=== PATIENT | female | born 1945 | race Caucasian/White ===

== ENCOUNTER 2018-04-25 06:30 | Day surgery (SDC) | payer MEDICARE, OTHER ==
[~2018-04-25] VITALS: Ht 157.5 cm; Wt 63.0 kg
[~2018-04-25 06:30] MED LIST: AMOXICILLIN500 MG PO; ESTRACE0.5 MG PO; MECLIZINE HCL25 MG PO; NORCO 5-325 TA1 EACH PO; SYNTHROID112 MCG PO; ZOFRAN ODT4 MG SL
--- NOTE | 2018-04-25 08:03 | NUR ---
04/25/18 0803 Katharina Stringer 0756 PT ARRIVED IN PACU SLEEPY WITH NO C/O'S. ABD SOFT. 0803 OXYGEN DECREASED TO 2L VIA NC WITH SATS 100%.
--- NOTE | 2018-04-25 08:41 | OR ---
[facility] [address], [place] [address] Signed DATE OF OPERATION: 04/25/2018 SURGEON: Ander Merlos MD PREOPERATIVE DIAGNOSIS: Hyperplastic colorectal polyps 2005. POSTOPERATIVE DIAGNOSIS: Ggsakhu-of-cofxkadx circumferential external hemorrhoids. PROCEDURES: Colonoscopy without biopsy. ESTIMATED BLOOD LOSS: None. INDICATIONS: Veronica is a 72-year-old female who underwent a colonoscopy in 2005. She had hyperplastic polyps in the distal transverse colon as well as the rectum. She returns now for followup colonoscopy. She has no lower GI complaints. There is no family history of colon cancer or polyps. In the office, I gave her a booklet on colonoscopy and we looked at that together along with the risks including, but not limited to gas bloating, crampy abdominal pain, bleeding, perforation, requiring surgery, and missed diagnosis. We also discussed the need for IV conscious sedation. She had expressed understanding and wish to proceed. PROCEDURE NOTE: Veronica was taken into our endoscopy suite and placed in the left lateral decubitus position. She was given 5 mg of Versed and 125 mcg of fentanyl to cover the case. A digital rectal exam was performed and she has the external hemorrhoids. The adult colonoscope was then introduced and advanced all around into the cecum under direct visualization of camera without difficulty. Her prep was quite good. The scope was then slowly withdrawn. We looked very carefully as we withdrew the scope and we found no pathology throughout the entire colon or rectum. Upon retroflexion of the scope, there was no additional pathology noted above the anal canal. After this, the gas was suctioned out and the colonoscope removed. Veronica tolerated the procedure quite well. RECOMMENDATIONS: I think she can follow up in 10 years for repeat colonoscopy so long as her health holds up. Electronically Signed By: ANDER MERLOS MD 04/25/18 0841 PATIENT NAME: VERONICA CRAVEN OPERATIVE REPORT DATE OF : 49 REPORT #: [id number] PHYSICIAN: ANDER MERLOS MD PCP: VERONICA SPENCER PA-C REPORT IS CONFIDENTIAL AND NOT TO BE RELEASED WITHOUT AUTHORIZATION [address] [address] Signed MD RICHARD Esqueda/MODL /[id number] cc: Dr. Tru Mcnamara [facility] MD Jose Esqueda MD Copies: ANDER MERLOS MD, RUSSELL BARR MD ~ Electronically Signed By: ANDER MERLOS MD 04/25/18 0841 PATIENT NAME: VERONICA CRAVEN OPERATIVE REPORT DATE OF : 49 REPORT #: [id number] PHYSICIAN: ANDER MERLOS MD PCP: VERONICA SPENCER PA-C REPORT IS CONFIDENTIAL AND NOT TO BE RELEASED WITHOUT AUTHORIZATION
== END 2018-04-25 08:45 | disposition home or self-care (01) ==
LOC: DS 06:30 → OPS 06:30
PROVIDERS: Colon & Rectal Surgery
PROC: 0DJD8ZZ Inspection of Lower Intestinal Tract, Via Natural or Artificial Opening Endoscopic (ICD-10-PCS; principal; 2018-04-25 06:45)
DX: Z12.11 Encounter for screening for malignant neoplasm of colon (principal); K64.4 Residual hemorrhoidal skin tags; Z86.010 Personal history of colon polyps; Z88.8 Allergy status to other drugs, medicaments and biological substances; Z91.040 Latex allergy status; Z79.899 Other long term (current) drug therapy
CPT/HCPCS: 99153; G0500; J2250; J3010; J7120